=== PATIENT | female | born 1990 ===

== ENCOUNTER 2018-04-20 08:48 | Emergency (ER) | payer OTHER ==
[2018-04-20 08:51] VITALS: TEMP 98.9; O2SAT 98
[2018-04-20 09:25] LABS: HCG,QUALITATIVE URINE NEGATIVE (NEGATIVE)
[2018-04-20 09:29] LABS: SQUAMOUS EPITHIAL < 1 /hpf (0-5); URINE BILIRUBIN NEGATIVE (NEGATIVE); URINE BLOOD 1+ (NEGATIVE); URINE CLARITY Clear (Clear); URINE COLOR Yellow (YELLOW); URINE GLUCOSE (UA) NORMAL (Normal); URINE LEUKOCYTE ESTERASE NEG Leu/uL (Negative); URINE PROTEIN NEGATIVE (NEGATIVE); URINE UROBILINOGEN NORMAL mg/dL (0.2-1.0)
--- NOTE | 2018-04-20 10:33 | C.PDOC ---
History Of Present Illness 27-year-old female, presents to the emergency department with complaints of vaginal bleeding for the past two days that is associated with lower abdominal pain. Patient states she has not taken anything for the pain. Patient unsure of prenancy status, last menses end of last month. Denies nausea/vomiting, fever, chills back pain, dysuria/hematuria or any other associated symptoms. Time Seen by Provider: 04/20/18 09:14 Chief Complaint (Nursing): Abdominal Pain History Per: Patient History/Exam Limitations: no limitations Onset/Duration Of Symptoms: Days (2) Current Symptoms Are (Timing): Still Present Past Medical History Reviewed: Historical Data, Nursing Documentation, Vital Signs Vital Signs: Last Vital Signs Temp 98.9 F 04/20/18 08:49 Pulse 81 04/20/18 10:41 Resp 18 04/20/18 10:41 BP 118/73 04/20/18 10:41 Pulse Ox 98 04/20/18 14:48 - Medical History PMH: Anxiety Family History: States: No Known Family Hx - Social History Hx Alcohol Use: No Hx Substance Use: No - Immunization History Hx Tetanus Toxoid Vaccination: No Hx Influenza Vaccination: No Review Of Systems Constitutional: Negative for: Fever, Chills Gastrointestinal: Positive for: Abdominal Pain Genitourinary: Positive for: Vaginal Bleeding. Negative for: Dysuria, Hematuria Neurological: Negative for: Weakness, Numbness, Headache, Dizziness Physical Exam - Physical Exam Appears: Non-toxic, No Acute Distress Skin: Normal Color, Warm, Dry, No Rash Head: Atraumatic, Normacephalic Eye(s): bilateral: Normal Inspection, EOMI Nose: Normal Oral Mucosa: Moist Lips: Normal Appearing Neck: Normal ROM Cardiovascular: Rhythm Regular Respiratory: Normal Breath Sounds Gastrointestinal/Abdominal: Bowel Sounds, Soft, No Tenderness, No Mass, No Distention, No Guarding, No Hernia Back: Normal Inspection, No CVA Tenderness Extremity: Normal ROM Neurological/Psych: Oriented x3, Normal Speech ED Course And Treatment O2 Sat by Pulse Oximetry: 98 (RA) Pulse Ox Interpretation: Normal Medical Decision Making Medical Decision Making: Impression: Abdominal pain, vaginal bleed Plan: * Motrin * UA/U preg Urine was negative. Motrin given for pain. Based on history and exam vaginal bleeding related to menses and menstrual cramps. No further workup indicated. Patient has no fever and abdomen soft without guarding or rebound. Recommend fluids, rest, hot towel and analgesic Disposition Counseled Patient/Family Regarding: Diagnosis, Need For Followup, Rx Given - Disposition Referrals: [facility] [Outside] [facility] [Outside] Disposition: HOME/ ROUTINE Disposition Time: 10:32 Condition: GOOD Additional Instructions: Take Motrin for pain as needed Follow up with your diffusion operator or clinic Prescriptions: Ibuprofen [Motrin] 600 mg PO Q8 #30 tab Instructions: Menstrual Cramps (DC) Forms: [employer] (Sami) - POA Present On Arrival: None - Clinical Impression Clinical Impression: Dysmenorrhea - Scribe Statement The provider has reviewed the documentation as recorded by the Scribe (Martha Renteria) All medical record entries made by the Scribe were at my direction and personally dictated by me. I have reviewed the chart and agree that the record accurately reflects my personal performance of the history, physical exam, medical decision making, and the department course for this patient. I have also personally directed, reviewed, and agree with the discharge instructions and disposition.
[2018-04-20 10:42] VITALS: BP 118/73; PULSE 81; RESP 18
== END 2018-04-20 10:42 | disposition home or self-care (01) ==
LOC: C.ER 08:48
DX: N94.6 Dysmenorrhea, unspecified (principal)